=== PATIENT | male | born 1970 | race Caucasian/White ===

== ENCOUNTER 2017-08-01 12:18 | Emergency (ER) | payer SELFPAY ==
[2017-08-01 13:44] VITALS: BP 134/84
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
== END 2017-08-01 14:41 | disposition home or self-care (01) ==
LOC: UCCORT 12:18
DX: S71.151A Open bite, right thigh, initial encounter (principal); Y04.1XXA Assault by human bite, initial encounter; Y92.9 Unspecified place or not applicable; S00.01XA Abrasion of scalp, initial encounter; X58.XXXA Exposure to other specified factors, initial encounter; F17.210 Nicotine dependence, cigarettes, uncomplicated
CPT/HCPCS: 36415; 86703; 86706; 86803; 87340; 99202; G0463